=== PATIENT | female | born 1975 ===

== ENCOUNTER 2025-08-16 15:06 | Inpatient (IN) | payer MEDICAID ==
[~2025-08-16] VITALS: Ht 157.5 cm; Wt 92.2 kg
[~2025-08-16 15:06] MED LIST: ACET-66 PO; BACL20TA PO; DICL100G60 TP; LEVO-89 PO; LIDO-57 TP; MAGN400T29 PO; MULT-1065 PO; OMEP-148 PO; OXYC-38 PO; SENN-374 PO
[2025-08-18] MEDS ORDERED: PETROLATUM,WHITE 28 GM JELLY TP PRN (22:15)
[2025-08-18] MEDS ORDERED: DOCUSATE SODIUM 100 MG CAPSULE PO PRN (22:15)
[2025-08-18] MEDS ORDERED: IBUPROFEN 400 MG TABLET PO PRN (22:15)
[2025-08-18] MEDS ORDERED: ACETAMINOPHEN 325 MG TABLET PO PRN (22:15)
[2025-08-18] MEDS ORDERED: MAG HYDROX/ALUMINUM HYD/SIMETH ES 30 ML SUSPENSION UDCUP PO PRN (22:15)
[2025-08-18] MEDS ORDERED: LOPERAMIDE HCL 2 MG CAPSULE PO PRN (22:15)
[2025-08-18] MEDS ORDERED: ALBUTEROL SULFATE HFA 90 MCG/PUFF 8 GM INHALER IH PRN (22:15)
[2025-08-18] MEDS ORDERED: GuaiFENesin/D-METHORPHAN [SUGAR-FREE] 200-20MG/10 ML SYRUP UDCUP PO PRN (22:15)
[2025-08-18] MEDS ORDERED: ONDANSETRON 4 MG TABLET PO PRN (22:15)
[2025-08-18] MEDS ORDERED: NICOTINE 14 MG/24 HOUR PATCH TD PRN (22:15)
[2025-08-18] MEDS ORDERED: MAGNESIUM HYDROXIDE SUSPENSION 30 ML UDCUP PO PRN (22:15)
[2025-08-18 22:47] VITALS: BP 130/92; PULSE 87; RESP 18; TEMP 98.2; O2SAT 97
[2025-08-18 23:33] VITALS: BP 130/92; PULSE 87; RESP 18; TEMP 98.2; O2SAT 97
[2025-08-19] MEDS: DICLOFENAC SODIUM 1% 100 GM GEL [2GM] TP PRN (05:23)
[2025-08-19 07:23] LABS: PLATELET COUNT (AUTO) 280 K/uL (150-450); RED BLOOD CELL COUNT(AUTO) 4.33 MIL/uL (4.00-5.20); RED CELL DISTRIBUTION WIDTH 13.3 % (11.5-14.5); WHITE BLOOD COUNT (AUTO) 7.7 K/uL (4.5-11.0)
[2025-08-19 07:44] LABS: ASPARTATE AMINOTRANSFERASE 8 U/L (15-37); CALCIUM, TOTAL 8.7 mg/dL (8.8-10.5); CREATININE 0.66 mg/dL (0.60-1.30); GLOMERULAR FILTR. RATE CALC > 60 mL/min (>60); GLUCOSE,RANDOM 130 mg/dL (70-110); SODIUM SERUM 138 mmol/L (136-145); TOTAL PROTEIN, SERUM 6.8 g/dL (6.4-8.2); UREA NITROGEN, BLOOD 10 mg/dL (7-18)
[2025-08-19] MEDS: DOCUSATE SODIUM 100 MG CAPSULE PO SCH (08:11)
[2025-08-19] MEDS: MULTIVITAMINS WITH IRON TABLET PO SCH (08:11)
[2025-08-19] MEDS: PANTOPRAZOLE SODIUM 40 MG DR TABLET PO SCH (08:11)
[2025-08-19] MEDS: PREGABALIN 75 MG CAPSULE PO SCH (08:11)
[2025-08-19] MEDS: LIDOCAINE 5% 36 GM OINTMENT TP SCH (08:12)
[2025-08-19 11:00] VITALS: BP 118/87; PULSE 71; RESP 16; TEMP 97.9; O2SAT 98
[2025-08-19] MEDS: OxyCODONE HCL/ACETAMINOPHEN 5-325 MG TABLET PO PRN (11:54)
[2025-08-19] MEDS: LIDOCAINE 5% TRANSDERMAL PATCH TD PRN (13:01)
[2025-08-19] MEDS: BACLOFEN 10 MG TABLET PO PRN (13:02)
[2025-08-19 16:04] VITALS: BP 132/54; PULSE 89; RESP 18; TEMP 98.1; O2SAT 97
[2025-08-19] MEDS ORDERED: PANT-31 PO (18:22)
[2025-08-19] MEDS ORDERED: MAGN400T57 PO (18:22)
[2025-08-19] MEDS ORDERED: CITA-144 PO (18:22)
[2025-08-19] MEDS ORDERED: PREG75 PO (18:22)
[2025-08-19] MEDS ORDERED: LID5O TP (18:22)
[2025-08-19] MEDS ORDERED: DOCU-385 PO (18:22)
[2025-08-19 19:55] VITALS: BP 126/86; PULSE 88; RESP 19; TEMP 97.1; O2SAT 100
[2025-08-19] MEDS ORDERED: SENNOSIDES 8.6 MG TABLET PO SCH (21:00)
[2025-08-19] MEDS ORDERED: MAGNESIUM OXIDE 400 MG TABLET PO SCH (21:00)
[2025-08-20] MEDS ORDERED: CITALOPRAM HYDROBROMIDE 10 MG TABLET PO SCH (09:00)
[2025-08-20] MEDS ORDERED: CITALOPRAM HYDROBROMIDE 20 MG TABLET PO SCH (09:00)
== END 2025-08-19 20:00 | disposition home or self-care (01) | DRG 751 ==
LOC: 3EI 08-18 21:50
PROVIDERS: ADMIT Psychiatry & Neurology Psychiatry; ATTEND Psychiatry & Neurology Psychiatry
DX: F32.9 Major depressive disorder, single episode, unspecified (principal); E66.9 Obesity, unspecified; F43.10 Post-traumatic stress disorder, unspecified; G47.33 Obstructive sleep apnea (adult) (pediatric); G47.00 Insomnia, unspecified; G89.29 Other chronic pain; M54.16 Radiculopathy, lumbar region; Z91.018 Allergy to other foods; Z68.37 Body mass index [BMI] 37.0-37.9, adult
CPT/HCPCS: 80053; 83036; 84443; 85025; 87081; 99285